=== PATIENT | male | born 1980 | race African-American/Black ===

== ENCOUNTER 2021-01-24 23:58 | Emergency (ER) | payer OTHER ==
[~2021-01-24] VITALS: Ht 195.6 cm; Wt 158.8 kg
--- NOTE | 2021-01-25 00:25 | NUR ---
PT BIBSELF C/O R TESTICULE PAIN RADIATING TO RLQ +CHILLS TODAY. PT IS A/OX4, RR EVEN AND UNLABORED, NO SIGNS OF SOB. PATIENT CONNECTED TO GUN FITTER AND POX. WILL CONTINUE TO MONIOTR.
[2021-01-25] MEDS ORDERED: ACETAMINOPHEN 325 MG TABLET PO ONE (00:30)
[2021-01-25] MEDS ORDERED: ONDANSETRON HCL/PF 4 MG/2 ML VIAL IVP ONE (00:30)
[2021-01-25] MEDS ORDERED: MORPHINE SULFATE INJ 2 MG/ML DISP.SYRIN IV ONE (00:30)
[2021-01-25] MEDS ORDERED: IV NS 0.9% 1,000 ML BAG IV ONE (00:30)
[2021-01-25 00:38] LABS: BILIRUBIN,URINE Negative (NEGATIVE); COLOR,URINE YELLOW (YELLOW); LEUKOCYTE ESTERASE ,URINE Negative (NEGATIVE); NITRITE, URINE Negative (NEGATIVE); PROTEIN,URINE 30 mg/dl (NEGATIVE); UGLUCOSE Negative (NEGATIVE); UROBILINOGEN,URINE 0.2 EU/dL (0.2)
[2021-01-25] MEDS ORDERED: ONDANSETRON HCL/PF 4 MG/2 ML VIAL ONE (00:40)
[2021-01-25] MEDS ORDERED: MORPHINE SULFATE INJ 4 MG/ML DISP.SYRIN ONE (00:41)
[2021-01-25] MEDS ORDERED: ACETAMINOPHEN ES 500 MG TABLET ONE (00:41)
[2021-01-25 00:52] LABS: BASOPHILS # (AUTO) 0.1 /CMM (0.0-0.2); BASOPHILS % (AUTO) 0.5 % (0.0-2.0); EOSINOPHILS % (AUTO) 0.8 % (0.0-6.0); HEMATOCRIT 39 % (39-51); HEMOGLOBIN 12.9 g/dL (13.5-17.5); LYMPHOCYTES # (AUTO) 1.8 /CMM (0.8-4.8); LYMPHOCYTES % (AUTO) 17.5 % (20.0-44.0); MEAN CORPUSCULAR HGB CONC 33 g/dl (31.0-36.0); MEAN CORPUSCULAR VOLUME 77 fL (80-96); MONOCYTES # (AUTO) 0.7 /CMM (0.1-1.30); MONOCYTES % (AUTO) 6.4 % (2.0-12.0); NEUTROPHILS # (AUTO) 7.6 /CMM (1.8-8.9); NEUTROPHILS % (AUTO) 74.8 % (43.0-81.0); PLATELET COUNT (AUTO) 320 /CMM (150-450); RED BLOOD CELL COUNT(AUTO) 5.06 MIL/uL (4.5-6.0); WHITE BLOOD COUNT (AUTO) 10.2 K/uL (4.3-11.0)
[2021-01-25 01:01] LABS: BACTERIA,URINE None seen /HPF (None Seen); SQUAMOUS EPITHELIAL CELL,UR Few /HPF (None Seen); WBC,URINE 0-2 /HPF (0-3)
--- NOTE | 2021-01-25 01:02 | NUR ---
PATINET TAKEN TO CT
[2021-01-25 01:09] LABS: CALCIUM, SERUM 8.9 mg/dL (8.5-10.1); CREATININE 1.3 mg/dL (0.6-1.3); POTASSIUM 3.5 mmol/L (3.5-5.1)
--- NOTE | 2021-01-25 01:14 | NUR ---
PATIENT RETURNED FROM CT
[2021-01-25 01:15] LABS: ALBUMIN 3.9 g/dL (3.4-5.0); BILIRUBIN,DIRECT 0.1 mg/dL (0.0-0.2); BILIRUBIN,TOTAL 0.4 mg/dL (0.2-1.0)
--- NOTE | 2021-01-25 01:24 | NUR ---
US AT PATIENT BEDSIDE
--- NOTE | 2021-01-25 02:15 | NUR ---
CALLED JE[facility] REGARDING CT AND US.
[2021-01-25] MEDS ORDERED: IBUP-1957 PO (02:31)
[2021-01-25 02:48] VITALS: BP 137/89
--- NOTE | 2021-01-25 02:52 | NUR ---
Patient discharged to home in stable condition. Written and verbal after care instructions given. Patient verbalizes understanding of instruction and RX. IV removed. Catheter intact and site benign. Pressure and 4x4 applied to site. No bleeding noted.
== END 2021-01-25 03:00 | disposition home or self-care (01) ==
LOC: ER 01-25 00:12
DX: I86.1 Scrotal varices (principal); N43.3 Hydrocele, unspecified; I10 Essential (primary) hypertension
CPT/HCPCS: 36415; 74176; 76870; 80048; 80076; 81001; 83605; 83690; 84484; 85025; 85730; 87040 ×2; 96361; 96374; 96375; 99285; J2270; J2405; J7030